=== PATIENT | female | born 1945 | race Hispanic/Latino ===

== ENCOUNTER 2017-09-22 14:53 | Emergency (ER) | payer MEDICARE, OTHER ==
[~2017-09-22 14:53] MED LIST: ISOVUE-370 76%-LOCM 1 ML ONE
[2017-09-22 15:35] LABS: Bilirubin Negative (Negative); Blood, Urine Negative (Negative); Clarity CLEAR (Clear); Glucose, Urine (Dipstick) >=1000 mg/dL (Negative); Leukocyte Negative (Negative); Nitrite Negative (Negative); Protein, Urine (Dipstick) Negative (Neg-Trace); Specific Gravity, Urine 1.034 (1.002-1.036); Urobilinogen 0.2 mg/dL (0.2-1.0)
[2017-09-22 15:45] LABS: #Basophils 0.1 thou/uL (0.0-0.2); #Eosinphils 0.2 thou/uL (0.0-0.7); #Lymphocytes 2.2 thou/uL (1.20-3.40); #Monocytes 0.5 thou/uL (0.11-0.59); #Neutrophils 6.2 thou/uL (1.40-6.50); %Basophils 0.9 % (0.0-1.0); %Eosinophils 2.3 % (0.0-10.0); %Lymphocytes 23.8 % (21.0-51.0); %Monocytes 4.9 % (0.0-10.0); %Neutrophils 68.2 % (42.0-75.0); Hemoglobin 14.3 g/dL (12.0-16.0); Mean Corpuscular HGB CONC 34.2 g/dL (32.0-36.0); Mean Corpuscular Volume 90.5 fl (81.0-99.0); Mean Platelet Volume 7.5 fL (7.4-10.4); Platelet Count 504 thou/uL (130-400); RBC Distribution Width 13.8 % (11.5-14.5); Red Blood Cell (RBC) Count 4.63 mill/uL (4.20-5.40); White Blood Cell (WBC) Count 9.1 thou/uL (4.8-10.8)
[2017-09-22 16:10] LABS: ALT (SGPT) 14 U/L (8-55); AST (SGOT) 18 U/L (5-34); Albumin 4.5 g/dL (3.4-4.8); Alkaline Phosphatase 103 U/L (40-150); Anion Gap 13 mmol/L (10-20); BUN (Urea Nitrogen) 16 mg/dL (9.8-20.1); Bilirubin, Total 0.4 mg/dL (0.2-1.2); Calc. Creatinine Clearance 0 mL/min (70-130); Calcium 10.4 mg/dL (7.8-10.44); Carbon Dioxide 28 mmol/L (23-31); Chloride 108 mmol/L (98-107); Estimated GFR-MDRD 62; Globulin 3.7 g/dL (2.4-3.5); Glucose 138 mg/dL (83-110); Lipase 41 U/L (8-78); Potassium 3.7 mmol/L (3.5-5.1); Protein, Total 8.2 g/dL (6.0-8.3); Sodium 145 mmol/L (136-145)
[2017-09-22 20:14] LABS: CKMB 0.9 ng/mL (0-6.6); Troponin I Less than 0.010 ng/mL (< 0.028)
--- NOTE | 2017-09-22 22:11 | CT ---
CT ABDOMEN AND PELVIS WITH CONTRAST: Comparison: None. History: Abdominal pain with renal failure and chronic anemia. Alcohol abuse. Technique: Multiple contiguous axial images were obtained in a CT of the abdomen and pelvis with cont rast. Coronal reformats were performed. FINDINGS: The gallbladder has been removed. There is enlargement of the common bile duct which is likely a rese rvoir affect from prior cholecystectomy. The kidneys, adrenal glands, spleen, and pancreas are unrema rkable. No free air, free fluid, or stranding changes are seen in the abdomen or pelvis. The reproductive organs are unremarkable. The large and small bowel are unremarkable. No abdominal or pelvic lymphadenopathy are present. Atherosclerotic calcifications are seen in the aorta. Degenerative changes are seen in the spine. Visualized inferior thorax and abdominal wall soft tissue s are unremarkable. IMPRESSION: No evidence of acute intraabdominal/pelvic abnormality. POS: [facility]
== END 2017-09-22 22:06 | disposition home or self-care (01) ==
LOC: ERS 14:53
DX: R10.32 Left lower quadrant pain (principal); R10.31 Right lower quadrant pain; E11.9 Type 2 diabetes mellitus without complications; E03.9 Hypothyroidism, unspecified; I10 Essential (primary) hypertension; Z79.899 Other long term (current) drug therapy; Z79.84 Long term (current) use of oral hypoglycemic drugs
CPT/HCPCS: 36415; 74177; 80053; 81003; 82010; 82550; 82553; 83690; 84484; 85025; 87086

== ENCOUNTER 2017-11-04 09:53 | Outpatient (CLI) | payer MEDICARE, OTHER | END 2017-11-04 09:54 | disposition home or self-care (01) | LOC: BICMAMMO 09:53 | DX: Z12.31 Encounter for screening mammogram for malignant neoplasm of breast (principal); N64.89 Other specified disorders of breast | CPT/HCPCS: 77063; 77067 ==

== ENCOUNTER 2018-02-03 09:12 | Outpatient (CLI) | payer MEDICARE, OTHER | END 2018-02-03 09:13 | disposition home or self-care (01) | LOC: BICMAMMO 09:12 | DX: R92.2 Inconclusive mammogram (principal) | CPT/HCPCS: 76642; 77065; G0279 ==

== ENCOUNTER 2019-03-10 11:10 | Outpatient (CLI) | payer MEDICARE, OTHER ==
[2019-03-10] MEDS ORDERED: ISOVUE-370 76%-LOCM 1 ML ONE (11:13)
--- NOTE | 2019-03-10 14:52 | CT ---
CT ABDOMEN WITH IV CONTRAST: 03/10/19 Oral contrast was administered. Multiplanar reconstruction. INDICATIONS: Left flank pain. Correlation made to CT abdomen and pelvis 09/22/17. FINDINGS: Lung bases are clear. The liver, spleen, and pancreas are unremarkable. Stomach and duodenum unremark able. Common bile duct is mildly dilated but is stable in appearance. Patient appears to be post chol ecystectomy. Adrenal glands appear normal. Kidneys appear unremarkable. Small cystic lesion in the lower pole of the left kidney is stable. The proximal ureters are unremarkable. Distal ureters and lower abdomen are not evaluated on this abdomen only study. The visualized small bowel loops appear unremarkable although the entire small bowel and colon are no t imaged. The aorta shows atherosclerotic calcification with normal caliber. No adenopathy seen. Osseous struct ures are unremarkable. IMPRESSION: No acute process identified. POS: OFF
== END 2019-03-10 11:11 | disposition home or self-care (01) ==
LOC: BICCT 11:10
PROVIDERS: ATTEND Internal Medicine Gastroenterology
DX: K21.9 Gastro-esophageal reflux disease without esophagitis (principal); R10.9 Unspecified abdominal pain; Z86.010 Personal history of colon polyps; Z80.0 Family history of malignant neoplasm of digestive organs
CPT/HCPCS: 74160; Q9966